=== PATIENT | female | born 1930 | race Caucasian/White ===

== ENCOUNTER 2017-12-13 08:29 | Inpatient (IN) | payer MEDICARE ==
[~2017-12-13] VITALS: Ht 172.7 cm; Wt 60.4 kg
[2017-12-13 09:03] LABS: CREATININE 0.9 mg/dL (0.5-1.5); POTASSIUM 3.9 mmol/L (3.5-5.1)
[2017-12-13 09:08] LABS: ALBUMIN 3.3 g/dL (3.5-5.0); BILIRUBIN,TOTAL 0.3 mg/dL (0.2-1.0); TOTAL PROTEIN, SERUM 7.7 g/dL (6.0-8.3)
[2017-12-13 09:12] LABS: BASOPHILS % (AUTO) 1.1 % (0.0-5.0); HEMATOCRIT 28.7 % (36-48); LYMPHOCYTES % (AUTO) 28.3 % (21.0-51.0); MEAN CORPUSCULAR HEMOGLOBIN 22.4 pg (27.0-33.0); MEAN CORPUSCULAR HGB CONC 30.7 g/dL (32.0-36.0); MEAN CORPUSCULAR VOLUME 72.9 fL (79-99); MONOCYTES % (AUTO) 10.5 % (3.0-13.0); NEUTROPHILS % (AUTO) 57.1 % (40.0-77.0); NUCLEATED RED BLOOD CELLS 0.1 % (0.0-0.19); PLATELET COUNT (AUTO) 355 K/uL (130-400); RED BLOOD CELL COUNT(AUTO) 3.94 MIL/uL (4.00-5.50); RED CELL DISTRIBUTION WIDTH 18.4 % (11.0-15.5); WHITE BLOOD COUNT (AUTO) 4.7 K/uL (4.8-10.8)
[2017-12-13 09:59] LABS: CREATINE KINASE MB 2.3 ng/mL (0.5-3.6)
[2017-12-13] MEDS ORDERED: LACTULOSE 20 GM/30 ML UDCUP PO PRN (12:30)
[2017-12-13] MEDS ORDERED: MAG HYDROX/AL HYDROX/SIMETH ES 30 ML SUSP UDCUP PO PRN (12:30)
[2017-12-13] MEDS ORDERED: ONDANSETRON HCL 4 MG/2 ML VIAL IV PRN (12:30)
[2017-12-13] MEDS ORDERED: GUAIFENESIN-DM 200/20 MG 10 ML PO PRN (12:30)
[2017-12-13] MEDS ORDERED: ACETAMINOPHEN 325 MG TAB PO PRN ×2 (12:30)
[2017-12-13] MEDS ORDERED: FUROSEMIDE 20 MG TABLET PO SCH (13:45)
[2017-12-13 13:59] LABS: % IRON SATURATION 31.8 % (22-44); FERRITIN 20 ng/mL (15-150); IRON, SERUM 158 mcg/dL (50-170); TOTAL IRON BINDING CAPACITY 496 mcg/dL (250-450)
[2017-12-13 14:00] LABS: RETICULOCYTE % (AUTO) 1.96 % (0.42-2.23)
[2017-12-13 14:06] LABS: THYROID STIMULATING HORMONE 3.87 uIU/mL (0.36-3.74)
[2017-12-13 15:40] VITALS: BP 147/72
[2017-12-13] MEDS ORDERED: ROSU5TAB PO (16:25)
[2017-12-13] MEDS ORDERED: MEDR2.5T PO (16:25)
[2017-12-13] MEDS ORDERED: ASPI-1005 PO (16:25)
[2017-12-13] MEDS ORDERED: COQ10 PO (16:25)
[2017-12-13] MEDS ORDERED: MV,C1TAB21 PO (16:25)
[2017-12-13] MEDS ORDERED: MELO-108 PO (16:25)
[2017-12-13] MEDS ORDERED: PREMC VG (16:25)
[2017-12-13] MEDS ORDERED: ASCO500C6 PO (16:25)
[2017-12-13] MEDS ORDERED: CHOLECALCIFEROL PO (16:25)
[2017-12-13] MEDS ORDERED: FISH1CAP20 PO (16:25)
[2017-12-13] MEDS ORDERED: CALC600T12 PO (16:25)
[2017-12-13] MEDS: FUROSEMIDE 20 MG TABLET PO SCH (16:34)
[2017-12-13 19:37] VITALS: BP 138/74
[2017-12-13] MEDS ORDERED: FAMOTIDINE/PF 20 MG/2 ML VIAL IV SCH (21:00)
[2017-12-13] MEDS: DIPHENHYDRAMINE HCL 25 MG CAPSULE PO PRN (21:53)
[2017-12-13] MEDS: ACETAMINOPHEN EXTRA STRENGTH 500 MG TABLET PO PRN (21:53)
[2017-12-14 03:35] LABS: HEMATOCRIT 25.8 % (36-48)
[2017-12-14 03:41] LABS: CREATININE 0.9 mg/dL (0.5-1.5); POTASSIUM 3.3 mmol/L (3.5-5.1)
[2017-12-14 04:02] VITALS: BP 143/72
[2017-12-14] MEDS: FUROSEMIDE 20 MG TABLET PO SCH (05:21)
[2017-12-14 07:04] VITALS: BP 129/59
[2017-12-14] MEDS ORDERED: POTASSIUM CHLORIDE 20MEQ/100ML 100 ML IV PRN (07:45)
[2017-12-14] MEDS ORDERED: POTASSIUM CHLORIDE 10% ELIXIR 20 MEQ/15 ML UDCUP PO PRN (07:45)
[2017-12-14] MEDS ORDERED: LIDOCAINE HCL-MPF 1% 2ML VIAL IVP PRN (07:45)
[2017-12-14] MEDS: POTASSIUM CHLORIDE 20 MEQ ERTAB PO PRN ×2 (10:04→12:36)
[2017-12-14 11:05] VITALS: BP 146/58
[2017-12-14] MEDS ORDERED: FURO20TA6 PO (12:43)
[2017-12-14] MEDS ORDERED: ROSU5TAB PO (12:43)
[2017-12-14] MEDS ORDERED: FOLI1TAB15 PO (12:43)
[2017-12-14] MEDS ORDERED: POTASSIUM CHLORIDE 20 MEQ ERTAB PO SCH (13:45)
[2017-12-14 14:18] LABS: ABG BASE EXCESS 6.1 mmol/L (-2.0-3.0); ABG HCO3 29.2 mmol/L (21.0-28.0); ABG OXYGEN SATURATION 96.6 % (95.0-99.0); ABG PCO2 37 mmHg (32-45)
[2017-12-14] MEDS: MAGNESIUM 2GM PREMIX 50ML 50 ML IV SCH ×2 (14:36→14:44)
[2017-12-14 16:33] VITALS: BP 132/81
[2017-12-14] MEDS: CALCIUM CARBONATE 500 MG TABLET PO SCH (18:00)
[2017-12-14] MEDS: IPRATROPIUM/ALBUTEROL SULFATE 3 ML SOLUTION IH SCH ×2 (18:36→23:13)
[2017-12-14 19:58] VITALS: BP 144/72
[2017-12-14] MEDS: FAMOTIDINE 20MG TAB 20 MG TAB PO SCH (20:27)
[2017-12-14 21:09] LABS: MAGNESIUM 2.3 mg/dL (1.80-2.40); POTASSIUM 3.8 mmol/L (3.5-5.1)
[2017-12-14] MEDS: BUDESONIDE 0.25 MG/2 ML INH IH SCH (22:02)
[2017-12-14] MEDS: ACETAMINOPHEN EXTRA STRENGTH 500 MG TABLET PO PRN (22:10)
[2017-12-14] MEDS: DIPHENHYDRAMINE HCL 25 MG CAPSULE PO PRN (22:11)
[2017-12-15] VITALS: BP 144/99
[2017-12-15 04:29] LABS: CREATININE 0.8 mg/dL (0.5-1.5); MAGNESIUM 2.2 mg/dL (1.80-2.40); POTASSIUM 3.6 mmol/L (3.5-5.1)
[2017-12-15] MEDS: IPRATROPIUM/ALBUTEROL SULFATE 3 ML SOLUTION IH SCH ×3 (06:10→18:29)
[2017-12-15] MEDS: BUDESONIDE 0.25 MG/2 ML INH IH SCH ×2 (06:11→18:41)
[2017-12-15 07:55] VITALS: BP 132/58
[2017-12-15] MEDS: CO Q10 PO SCH (07:56)
[2017-12-15] MEDS: CALCIUM CARBONATE 500 MG TABLET PO SCH ×2 (07:57→17:22)
[2017-12-15] MEDS: FISH OIL 1000 MG/CAP PO SCH (07:57)
[2017-12-15] MEDS: MULTIVITAMINS/MINERALS/IRO TAB PO SCH (07:57)
[2017-12-15] MEDS: ASPIRIN 81MG TAB.CHEW PO SCH (07:57)
[2017-12-15] MEDS: **HM** VIT D3 1000 UNITS PO SCH (07:57)
[2017-12-15] MEDS: MELOXICAM 7.5 MG TABLET PO SCH (07:57)
[2017-12-15] MEDS: ASCORBIC ACID 500 MG TAB PO SCH (07:57)
[2017-12-15] MEDS: ATORVASTATIN CALCIUM 10 MG TABLET PO SCH (07:57)
[2017-12-15] MEDS: FAMOTIDINE 20MG TAB 20 MG TAB PO SCH ×2 (07:57→21:06)
[2017-12-15] MEDS ORDERED: MEDROXYPROGESTERONE ACET 5 MG TAB PO SCH (09:00)
[2017-12-15 11:01] LABS: HEMATOCRIT 27.9 % (36-48)
[2017-12-15] MEDS: REGADENOSON 0.4 MG/5 ML PF SYG IVP SCH ×2 (11:15→16:16)
[2017-12-15 11:31] VITALS: BP 114/66
[2017-12-15] MEDS: POTASSIUM CHLORIDE 20 MEQ ERTAB PO PRN ×2 (15:21→17:22)
[2017-12-15 19:18] VITALS: BP 140/71
[2017-12-15] MEDS ORDERED: ESTROGENS,CONJUGATED 0.625 MG/GM 42.5 GM VAG CRM VG SCH (21:00)
[2017-12-15] MEDS: DIPHENHYDRAMINE HCL 25 MG CAPSULE PO PRN (21:06)
[2017-12-15] MEDS: ACETAMINOPHEN EXTRA STRENGTH 500 MG TABLET PO PRN (21:06)
[2017-12-15] MEDS ORDERED: IPRATROPIUM/ALBUTEROL SULFATE 3 ML SOLUTION IH PRN (22:00)
[2017-12-15 23:00] VITALS: BP 138/67
[2017-12-16] MEDS ORDERED: BUDESONIDE 0.25 MG/2 ML INH IH PRN
[2017-12-16] MEDS ORDERED: PHARMACY COMMUNICATION MISC SCH (01:00)
[2017-12-16 04:30] VITALS: BP 146/62
[2017-12-16 08:03] VITALS: BP 149/73
[2017-12-16] MEDS: MELOXICAM 7.5 MG TABLET PO SCH (09:00)
[2017-12-16] MEDS: **HM** VIT D3 1000 UNITS PO SCH (09:00)
[2017-12-16] MEDS: MULTIVITAMINS/MINERALS/IRO TAB PO SCH (09:00)
[2017-12-16] MEDS: FISH OIL 1000 MG/CAP PO SCH (09:00)
[2017-12-16] MEDS: ASCORBIC ACID 500 MG TAB PO SCH (09:00)
[2017-12-16] MEDS: FAMOTIDINE 20MG TAB 20 MG TAB PO SCH ×2 (10:15→21:22)
[2017-12-16] MEDS: ASPIRIN 81MG TAB.CHEW PO SCH (10:15)
[2017-12-16] MEDS: CALCIUM CARBONATE 500 MG TABLET PO SCH ×2 (10:19→16:56)
[2017-12-16] MEDS: CO Q10 PO SCH (10:24)
[2017-12-16 11:00] VITALS: BP_SYST 149; BP_SYST 157; BP_DIAS 78; BP_DIAS 81
[2017-12-16 16:30] VITALS: BP 140/92
[2017-12-16] MEDS ORDERED: PRED20TA3 PO (16:58)
[2017-12-16] MEDS ORDERED: METHYLPREDNISOLONE SOD SUCC 40MG/ML 1ML IVP SCH (17:00)
[2017-12-16 19:32] VITALS: BP 135/63
[2017-12-16] MEDS: CALCIUM 500 + VITAMIN D 200 TABLET PO SCH (21:23)
[2017-12-16] MEDS: METHYLPREDNISOLONE SOD SUCC 40MG/ML 1ML IVP SCH (21:23)
[2017-12-16] MEDS: DOXYCYCLINE HYCLATE 100 MG TABLET PO SCH (21:23)
[2017-12-16] MEDS: DIPHENHYDRAMINE HCL 25 MG CAPSULE PO PRN (21:23)
[2017-12-16 23:15] VITALS: BP 139/88
[2017-12-17 03:00] VITALS: BP 138/93
[2017-12-17 05:08] LABS: HEMATOCRIT 27.8 % (36-48); MEAN CORPUSCULAR HEMOGLOBIN 22.6 pg (27.0-33.0); MEAN CORPUSCULAR HGB CONC 31.1 g/dL (32.0-36.0); MEAN CORPUSCULAR VOLUME 72.4 fL (79-99); PLATELET COUNT (AUTO) 355 K/uL (130-400); RED BLOOD CELL COUNT(AUTO) 3.84 MIL/uL (4.00-5.50); RED CELL DISTRIBUTION WIDTH 18.9 % (11.0-15.5)
[2017-12-17 05:30] LABS: CREATININE 0.8 mg/dL (0.5-1.5); MAGNESIUM 1.8 mg/dL (1.80-2.40); PHOSPHORUS 3.5 mg/dL (2.5-4.9); POTASSIUM 3.7 mmol/L (3.5-5.1)
[2017-12-17] MEDS: METHYLPREDNISOLONE SOD SUCC 40MG/ML 1ML IVP SCH ×3 (05:40→21:51)
[2017-12-17 05:45] LABS: INR 1.06 (0.85-1.15); PARTIAL THROMBOPLASTIN TIME 28.7 SEC (26.3-35.5); PROTHROMBIN TIME 11.1 SEC (9.6-11.6)
[2017-12-17 07:00] VITALS: BP 106/41
[2017-12-17] MEDS: CO Q10 PO SCH (08:00)
[2017-12-17] MEDS: ASPIRIN 81MG TAB.CHEW PO SCH (08:44)
[2017-12-17] MEDS: ASCORBIC ACID 500 MG TAB PO SCH (08:44)
[2017-12-17] MEDS: DOXYCYCLINE HYCLATE 100 MG TABLET PO SCH ×2 (08:44→21:51)
[2017-12-17] MEDS: CALCIUM CARBONATE 500 MG TABLET PO SCH ×2 (08:44→17:00)
[2017-12-17] MEDS: FAMOTIDINE 20MG TAB 20 MG TAB PO SCH ×2 (08:44→21:51)
[2017-12-17] MEDS: ATORVASTATIN CALCIUM 10 MG TABLET PO SCH (08:44)
[2017-12-17] MEDS: POTASSIUM CHLORIDE 20 MEQ ERTAB PO PRN (08:45)
[2017-12-17] MEDS: MULTIVITAMINS/MINERALS/IRO TAB PO SCH (09:00)
[2017-12-17] MEDS: FISH OIL 1000 MG/CAP PO SCH (09:00)
[2017-12-17] MEDS: **HM** VIT D3 1000 UNITS PO SCH (09:00)
[2017-12-17] MEDS: CALCIUM 500 + VITAMIN D 200 TABLET PO SCH ×2 (09:00→21:51)
[2017-12-17] MEDS: MELOXICAM 7.5 MG TABLET PO SCH (09:00)
[2017-12-17 11:00] VITALS: BP 100/43
[2017-12-17 16:00] VITALS: BP 122/62
[2017-12-17] MEDS ORDERED: MAGNESIUM 2GM PREMIX 50ML 50 ML IV SCH (18:00)
[2017-12-17 19:48] VITALS: BP 121/68
[2017-12-17] MEDS ORDERED: POTASSIUM CHLORIDE 10 MEQ/TAB.SA PO ONE ×2 (21:32)
[2017-12-17] MEDS: ACETAMINOPHEN EXTRA STRENGTH 500 MG TABLET PO PRN (22:02)
[2017-12-17] MEDS: DIPHENHYDRAMINE HCL 25 MG CAPSULE PO PRN (22:02)
[2017-12-17 23:28] VITALS: BP 132/61
[2017-12-18] VITALS (12 sets, daily range): BP systolic 123–159; BP diastolic 61–85
[2017-12-18 04:23] LABS: HEMATOCRIT 27.2 % (36-48); MEAN CORPUSCULAR HEMOGLOBIN 22.3 pg (27.0-33.0); MEAN CORPUSCULAR HGB CONC 30.8 g/dL (32.0-36.0); MEAN CORPUSCULAR VOLUME 72.6 fL (79-99); PLATELET COUNT (AUTO) 374 K/uL (130-400); RED BLOOD CELL COUNT(AUTO) 3.75 MIL/uL (4.00-5.50); RED CELL DISTRIBUTION WIDTH 19.1 % (11.0-15.5); WHITE BLOOD COUNT (AUTO) 18.6 K/uL (4.8-10.8)
[2017-12-18 04:30] LABS: CREATININE 0.8 mg/dL (0.5-1.5); MAGNESIUM 1.8 mg/dL (1.80-2.40); POTASSIUM 4.4 mmol/L (3.5-5.1)
[2017-12-18 04:35] LABS: INR 1.02 (0.85-1.15); PARTIAL THROMBOPLASTIN TIME 26.1 SEC (26.3-35.5); PROTHROMBIN TIME 10.7 SEC (9.6-11.6)
[2017-12-18] MEDS: METHYLPREDNISOLONE SOD SUCC 40MG/ML 1ML IVP SCH ×3 (06:07→21:07)
[2017-12-18] MEDS ORDERED: DOXYCYCLINE 100MG+NS 250ML 250 ML IV SCH (06:30)
[2017-12-18] MEDS: CALCIUM CARBONATE 500 MG TABLET PO SCH ×2 (08:00→18:12)
[2017-12-18] MEDS: CO Q10 PO SCH (08:00)
[2017-12-18] MEDS: ASPIRIN 81MG TAB.CHEW PO SCH (09:00)
[2017-12-18] MEDS: **HM** VIT D3 1000 UNITS PO SCH (09:00)
[2017-12-18] MEDS: CALCIUM 500 + VITAMIN D 200 TABLET PO SCH ×2 (09:00→21:09)
[2017-12-18] MEDS: MULTIVITAMINS/MINERALS/IRO TAB PO SCH (09:00)
[2017-12-18] MEDS: FAMOTIDINE 20MG TAB 20 MG TAB PO SCH ×2 (09:00→21:09)
[2017-12-18] MEDS: ASCORBIC ACID 500 MG TAB PO SCH (09:00)
[2017-12-18] MEDS: FISH OIL 1000 MG/CAP PO SCH (09:00)
[2017-12-18] MEDS: DOXYCYCLINE HYCLATE 100 MG TABLET PO SCH ×2 (09:00→21:10)
[2017-12-18] MEDS: MELOXICAM 7.5 MG TABLET PO SCH (09:00)
[2017-12-18] MEDS ORDERED: LIDOCAINE HCL 2% 20ML ONE (10:07)
[2017-12-18] MEDS ORDERED: MIDAZOLAM HCL 1 MG/ML 2ML VIAL ONE ×2 (10:32→10:35)
[2017-12-18] MEDS ORDERED: MEPERIDINE-PF 50 MG/ML SYG ONE (10:32)
[2017-12-18] MEDS ORDERED: ISOPROTERENOL HCL 0.2 MG/ML AMP/VIAL/BAG ONE (10:48)
[2017-12-18] MEDS: ACETAMINOPHEN EXTRA STRENGTH 500 MG TABLET PO PRN (21:09)
[2017-12-18] MEDS: DIPHENHYDRAMINE HCL 25 MG CAPSULE PO PRN (21:09)
[2017-12-19] MEDS: METHYLPREDNISOLONE SOD SUCC 40MG/ML 1ML IVP SCH (06:15)
[2017-12-19 06:17] LABS: HEMATOCRIT 27.2 % (36-48); MEAN CORPUSCULAR HEMOGLOBIN 22.1 pg (27.0-33.0); MEAN CORPUSCULAR HGB CONC 30.4 g/dL (32.0-36.0); MEAN CORPUSCULAR VOLUME 72.9 fL (79-99); PLATELET COUNT (AUTO) 360 K/uL (130-400); RED BLOOD CELL COUNT(AUTO) 3.73 MIL/uL (4.00-5.50); RED CELL DISTRIBUTION WIDTH 18.5 % (11.0-15.5)
[2017-12-19 07:00] VITALS: BP 154/93
[2017-12-19] MEDS: CO Q10 PO SCH (08:00)
[2017-12-19] MEDS: **HM** VIT D3 1000 UNITS PO SCH (09:00)
[2017-12-19] MEDS: MELOXICAM 7.5 MG TABLET PO SCH (09:00)
[2017-12-19] MEDS: MULTIVITAMINS/MINERALS/IRO TAB PO SCH (09:00)
[2017-12-19] MEDS: FISH OIL 1000 MG/CAP PO SCH (09:00)
[2017-12-19] MEDS: ASPIRIN 81MG TAB.CHEW PO SCH (09:34)
[2017-12-19] MEDS: DOXYCYCLINE HYCLATE 100 MG TABLET PO SCH (09:34)
[2017-12-19] MEDS: CALCIUM 500 + VITAMIN D 200 TABLET PO SCH (09:34)
[2017-12-19] MEDS: CALCIUM CARBONATE 500 MG TABLET PO SCH (09:34)
[2017-12-19] MEDS: FAMOTIDINE 20MG TAB 20 MG TAB PO SCH (09:35)
[2017-12-19] MEDS: ATORVASTATIN CALCIUM 10 MG TABLET PO SCH (09:35)
[2017-12-19] MEDS: ASCORBIC ACID 500 MG TAB PO SCH (09:35)
[2017-12-19] MEDS ORDERED: DOXY100T2 PO (10:36)
[2017-12-19 11:15] VITALS: BP 153/83
== END 2017-12-19 11:15 | disposition home or self-care (01) | DRG 274 ==
LOC: EDH 08:29 → EDHIP 12:17 → OBSVTOIN 12:17 → 2DH 15:37
PROVIDERS: ADMIT Family Medicine; ATTEND Family Medicine
PROC: 02583ZZ Destruction of Conduction Mechanism, Percutaneous Approach (ICD-10-PCS; principal; 2017-12-18)
DX: I49.9 Cardiac arrhythmia, unspecified (principal); I50.32 Chronic diastolic (congestive) heart failure; J84.10 Pulmonary fibrosis, unspecified; J98.11 Atelectasis; J44.9 Chronic obstructive pulmonary disease, unspecified; R00.8 Other abnormalities of heart beat; J84.89 Other specified interstitial pulmonary diseases; I49.3 Ventricular premature depolarization; D64.9 Anemia, unspecified; E78.5 Hyperlipidemia, unspecified; F17.210 Nicotine dependence, cigarettes, uncomplicated; J06.9 Acute upper respiratory infection, unspecified; R91.1 Solitary pulmonary nodule; B95.62 Methicillin resistant Staphylococcus aureus infection as the cause of diseases classified elsewhere; T38.0X5A Adverse effect of glucocorticoids and synthetic analogues, initial encounter; Z87.01 Personal history of pneumonia (recurrent); Z88.0 Allergy status to penicillin; Z88.8 Allergy status to other drugs, medicaments and biological substances
CPT/HCPCS: 36415; 36600; 71045; 71250; 71275; 78452; 80048; 80053; 80339; 82550; 82553; 82607; 82728; 82746; 82803; 83605; 83735; 83880; 84100; 84132; 84443; 84484; 85025; 85027; 85378; 85610; 85730; 86850; 86900; 86901; 87040; 87071; 87205; 87804; 93005; 93017; 93306; 93623; 93654; 93970; 94010; 94640; 94664; 96374; 99152; 99153; A9500; C1730; C1894; J1644; J2175; J2250; J2785; J2920; J3475; J3490; Q0163; Q9967

== ENCOUNTER 2017-12-20 04:45 | Emergency (ER) | payer MEDICARE ==
[~2017-12-20 04:45] MED LIST: ASCO500C6 PO; ASPI-1005 PO; CALC600T12 PO; CHOLECALCIFEROL PO; COQ10 PO; DOXY100T2 PO; FOLI1TAB15 PO; FURO20TA6 PO; MEDR2.5T PO; MV,C1TAB21 PO; PRED20TA3 PO; PREMC VG; ROSU5TAB PO
[2017-12-20 05:17] LABS: BASOPHILS % (AUTO) 0.2 % (0.0-5.0); EOSINOPHILS % (AUTO) 0.4 % (0.0-8.0); HEMATOCRIT 30.3 % (36-48); LYMPHOCYTES % (AUTO) 15.2 % (21.0-51.0); MEAN CORPUSCULAR HEMOGLOBIN 22.8 pg (27.0-33.0); MEAN CORPUSCULAR HGB CONC 30.9 g/dL (32.0-36.0); MEAN CORPUSCULAR VOLUME 73.6 fL (79-99); MONOCYTES % (AUTO) 10.6 % (3.0-13.0); NEUTROPHILS % (AUTO) 73.6 % (40.0-77.0); NUCLEATED RED BLOOD CELLS 0.1 % (0.0-0.19); PLATELET COUNT (AUTO) 298 K/uL (130-400); RED BLOOD CELL COUNT(AUTO) 4.12 MIL/uL (4.00-5.50); RED CELL DISTRIBUTION WIDTH 18.6 % (11.0-15.5); WHITE BLOOD COUNT (AUTO) 13.3 K/uL (4.8-10.8)
[2017-12-20 05:23] LABS: CREATININE 0.8 mg/dL (0.5-1.5); POTASSIUM 3.9 mmol/L (3.5-5.1)
[2017-12-20 05:27] LABS: ALBUMIN 2.9 g/dL (3.5-5.0); BILIRUBIN,DIRECT 0.1 mg/dL (0.0-0.3); BILIRUBIN,TOTAL 0.5 mg/dL (0.2-1.0); TOTAL PROTEIN, SERUM 7.4 g/dL (6.0-8.3)
[2017-12-20] MEDS ORDERED: MEROPENEM 1 GM VIAL ONE (05:30)
[2017-12-20 05:31] LABS: INR 1.02 (0.85-1.15); PROTHROMBIN TIME 10.7 SEC (9.6-11.6)
[2017-12-20] MEDS ORDERED: SODIUM CHLORIDE 0.9% 50 ML IV ONE (05:31)
[2017-12-20 05:40] LABS: B-TYPE NATRIURETIC PEPTIDE 212 pg/mL (0-100)
[2017-12-20] MEDS ORDERED: IPRATROPIUM/ALBUTEROL SULFATE 3 ML SOLUTION IH ONE (05:41)
[2017-12-20] MEDS ORDERED: LACTATED RINGERS 1000ML 1,000 ML IV ONE (06:19)
[2017-12-20] MEDS ORDERED: LEVOFLOXACIN 500 MG/D5W 100 ML 100 ML ONE (07:21)
[2017-12-20] MEDS ORDERED: VANCOMYCIN 1GM+NS 250ML 250 ML IV ONE (07:41)
== END 2017-12-20 10:00 | disposition home or self-care (01) ==
LOC: EDH 04:45
DX: J15.1 Pneumonia due to Pseudomonas (principal); E78.5 Hyperlipidemia, unspecified; Z88.0 Allergy status to penicillin; Z88.1 Allergy status to other antibiotic agents; Z98.51 Tubal ligation status; Z98.890 Other specified postprocedural states
CPT/HCPCS: 36415; 71045; 80048; 80076; 82550; 83605 ×2; 83880; 84484; 85025; 85610; 85730; 87040; 87186 ×2; 93005; 94640; 96365; 96367; 99285; J1956; J2185; J3370; J7120

== ENCOUNTER 2018-02-03 10:29 | Day surgery (SDC) | payer MEDICARE ==
[~2018-02-03] VITALS: Ht 162.6 cm; Wt 64.0 kg
[~2018-02-03 10:29] MED LIST changes: +SODIUM CHLORIDE 0.9% 1000ML 1,000 ML IV ONE
[2018-02-03 10:35] VITALS: BP 139/77
[2018-02-03] MEDS ORDERED: LIDOCAINE HCL 1% 20 ML VIAL ONE (11:47)
[2018-02-03] MEDS ORDERED: PROPOFOL 10 MG/ML 20ML VIAL IV ONE (11:47)
[2018-02-03] MEDS ORDERED: GLYCOPYRROLATE 0.2 MG/ML 5 ML VIAL ONE (11:48)
[2018-02-03] MEDS ORDERED: TYLENOL PM PO (11:49)
[2018-02-03] MEDS ORDERED: PRED10TA3 PO (11:49)
[2018-02-03] MEDS ORDERED: IRON PO (11:49)
[2018-02-03] MEDS ORDERED: MELA10TA2 PO (11:49)
[2018-02-03] MEDS ORDERED: CHOL200026 PO (11:49)
[2018-02-03] MEDS ORDERED: EQUATE PO (11:49)
[2018-02-03] MEDS ORDERED: CALC600T12 PO (11:49)
[2018-02-03 11:58] VITALS: BP 135/67
== END 2018-02-03 12:18 | disposition home or self-care (01) ==
LOC: ENDO 10:29 → DAH 10:29 → ENDO 12:18
PROVIDERS: ATTEND Internal Medicine Gastroenterology
DX: R93.3 Abnormal findings on diagnostic imaging of other parts of digestive tract (principal); Z87.11 Personal history of peptic ulcer disease; Z80.9 Family history of malignant neoplasm, unspecified; M19.049 Primary osteoarthritis, unspecified hand
CPT/HCPCS: 45378; A4606; J2704; J3490; J7030

== ENCOUNTER 2018-02-04 08:24 | Day surgery (SDC) | payer MEDICARE, OTHER ==
[~2018-02-04] VITALS: Ht 162.6 cm; Wt 64.4 kg
[~2018-02-04 08:24] MED LIST changes: -ASCO500C6 PO; -ASPI-1005 PO; +CHOL200026 PO; -CHOLECALCIFEROL PO; -COQ10 PO; -DOXY100T2 PO; +EQUATE PO; -FOLI1TAB15 PO; -FURO20TA6 PO; +IRON PO; +MELA10TA2 PO; -MV,C1TAB21 PO; +PRED10TA3 PO; -PRED20TA3 PO; -ROSU5TAB PO; +TYLENOL PM PO
[2018-02-04 09:52] VITALS: BP 160/76
[2018-02-04] MEDS ORDERED: PROPOFOL 10 MG/ML 20ML VIAL IV ONE (11:15)
[2018-02-04 11:20] VITALS: BP 108/71
== END 2018-02-04 12:00 | disposition home or self-care (01) ==
LOC: DAH 08:24 → ENDO 08:24
PROVIDERS: ATTEND Internal Medicine Gastroenterology
DX: C18.2 Malignant neoplasm of ascending colon (principal); C18.0 Malignant neoplasm of cecum; M19.90 Unspecified osteoarthritis, unspecified site; Z79.899 Other long term (current) drug therapy; Z98.890 Other specified postprocedural states; Z96.60 Presence of unspecified orthopedic joint implant; Z88.0 Allergy status to penicillin; Z88.8 Allergy status to other drugs, medicaments and biological substances
CPT/HCPCS: 45380; 45381; 88305; A4606; J2704; J7030

== ENCOUNTER 2018-10-07 09:57 | Emergency (ER) | payer MEDICARE, OTHER ==
[~2018-10-07 09:57] MED LIST changes: -SODIUM CHLORIDE 0.9% 1000ML 1,000 ML IV ONE
[2018-10-07] MEDS ORDERED: SODIUM CHLORIDE 0.9% 1000ML 1,000 ML IV ONE (10:10)
[2018-10-07] MEDS ORDERED: ACETAMINOPHEN EXTRA STRENGTH 500 MG TABLET ONE (10:25)
[2018-10-07 10:42] LABS: BASOPHILS % (AUTO) 0.4 % (0.0-5.0); EOSINOPHILS % (AUTO) 0.9 % (0.0-8.0); HEMATOCRIT 44.6 % (36-48); LYMPHOCYTES % (AUTO) 14.9 % (21.0-51.0); MEAN CORPUSCULAR HEMOGLOBIN 32.4 pg (27.0-33.0); MEAN CORPUSCULAR HGB CONC 33.3 g/dL (32.0-36.0); MEAN CORPUSCULAR VOLUME 97.3 fL (79-99); MONOCYTES % (AUTO) 4.7 % (3.0-13.0); NEUTROPHILS % (AUTO) 79.1 % (40.0-77.0); PLATELET COUNT (AUTO) 202 K/uL (130-400); RED BLOOD CELL COUNT(AUTO) 4.58 MIL/uL (4.00-5.50); RED CELL DISTRIBUTION WIDTH 15.5 % (11.0-15.5); WHITE BLOOD COUNT (AUTO) 5.5 K/uL (4.8-10.8)
[2018-10-07 10:49] LABS: CARBON DIOXIDE 28 mmol/L (21-32); CHLORIDE 98 mmol/L (101-111); CREATININE 0.6 mg/dL (0.5-1.5); GLOMERULAR FILTR. RATE CALC 101 mL/min (>60); GLUCOSE,RANDOM 111 mg/dL (70-105); POTASSIUM 3.8 mmol/L (3.5-5.1); SODIUM SERUM 134 mmol/L (136-145); UREA NITROGEN, BLOOD 17 mg/dL (7-18)
[2018-10-07 10:58] LABS: INR 1.02 (0.85-1.15); PARTIAL THROMBOPLASTIN TIME 27.8 SEC (26.3-35.5); PROTHROMBIN TIME 10.7 SEC (9.6-11.6)
[2018-10-07] MEDS ORDERED: LEVOFLOXACIN 500 MG/D5W 100 ML 100 ML ONE (10:58)
[2018-10-07 11:04] LABS: ALANINE AMINOTRANSFERASE 30 U/L (12-78); ALBUMIN 3.7 g/dL (3.5-5.0); ASPARTATE AMINOTRANSFERASE 54 U/L (10-37); BILIRUBIN,TOTAL 0.5 mg/dL (0.2-1.0); CREATINE KINASE, TOTAL 110 U/L (21-232); MYOGLOBIN 64 ng/mL (10-92); TOTAL PROTEIN, SERUM 7.7 g/dL (6.0-8.3); TROPONIN I < 0.04 ng/mL (0.00-0.06)
[2018-10-07] MEDS ORDERED: KETOROLAC TROMETHAMINE 30MG/ML ONE (11:08)
[2018-10-07 11:36] LABS: APPEARANCE,URINE Clear (CLEAR); BILIRUBIN,URINE Negative (NEGATIVE); COLOR,URINE Yellow (YELLOW); GLUCOSE, URINE (UA) Negative (NEGATIVE); KETONES,URINE Negative (NEGATIVE); LEUKOCYTE ESTERASE ,URINE Negative (NEGATIVE); NITRATE,URINE Negative (NEGATIVE); OCCULT BLOOD,URINE Negative (NEGATIVE); PH,URINE 8.5 (5.0-8.0); PROTEIN,URINE Negative (NEGATIVE); UROBILINOGEN,URINE 0.2 mg/dL (0.2-1.0)
[2018-10-07] MEDS ORDERED: ONDANSETRON HCL 4 MG/2 ML VIAL ONE (12:37)
[2018-10-07] MEDS ORDERED: ASPIRIN 325 MG TABLET ONE (12:37)
[2018-10-07] MEDS ORDERED: ACETAMINOPHEN-CODEINE 300/30MG TAB ONE ×2 (12:37→19:01)
[2018-10-07] MEDS ORDERED: SODIUM CHLORIDE 0.9% 500ML 500 ML IV ONE (14:14)
[2018-10-07] MEDS ORDERED: GADODIAMIDE 5 MMOL/10 ML VIAL 5 MMOL/10 ML ML IV ONE (16:38)
== END 2018-10-07 19:15 | disposition home or self-care (01) ==
LOC: EDH 09:57
DX: I63.9 Cerebral infarction, unspecified (principal); R42 Dizziness and giddiness; E78.5 Hyperlipidemia, unspecified; Z85.038 Personal history of other malignant neoplasm of large intestine; Z98.890 Other specified postprocedural states; Z87.891 Personal history of nicotine dependence; Z88.0 Allergy status to penicillin; Z88.1 Allergy status to other antibiotic agents; Z88.8 Allergy status to other drugs, medicaments and biological substances
CPT/HCPCS: 36415; 70450; 70496; 70498; 70553; 71045; 80053; 81003; 82550; 83605 ×2; 83874; 84484; 85025; 85610; 85730; 87040 ×2; 87088; 87804 ×2; 93005; 96361; 96365; 96366; 96375; 99291; A9579; J1885; J1956; J2405; J7030; J7040